=== PATIENT | male | born 1950 | race Hispanic/Latino ===

== ENCOUNTER 2021-04-07 18:51 | Inpatient (IN) | payer MEDICARE ==
--- NOTE | 2021-04-07 19:15 | Emergency Department Report ---
ED Shortness of Breath HPI - General Stated Complaint: SOB/ABD DISTENTION Time Seen by Provider: 04/07/21 19:03 Source: patient, EMS - History of Present Illness Initial Comments: Patient is 71 years old male with history of congestive heart failure and schizophrenia. Patient brought from [facility] for eval uation of difficulty in breathing for the last few days. Patient stated that he is not sure if he is taking his Lasix on. Patient admitted orthopnea and stated that he get out of breath even if he walks for short distance. Patient denied any chest pain. No fever cough or chills. Patient stated that he is not vaccinated for COVID-19. MD Complaint: shortness of breath -: days(s) Severity: moderate Known History Of: congestive heart failure Associated Symptoms: denies other symptoms Treatments Prior to Arrival: none - Related Data Allergies Allergy/AdvReac Type Severity Reaction Status Date / Time No Known Allergies Allergy Unverified 04/07/21 21:15 ED Review of Systems ROS: Stated complaint: SOB/ABD DISTENTION Other details as noted in HPI Comment: All other systems reviewed and negative Constitutional: denies: chills, fever Respiratory: orthopnea, shortness of breath, SOB with exertion, SOB at rest. denies: cough, wheezing Cardiovascular: dyspnea on exertion, orthopnea, paroxysmal nocturnal dyspnea. denies: chest pain, palpitations Gastrointestinal: denies: abdominal pain, nausea, vomiting, diarrhea, constipation, hematemesis, melena, hematochezia Musculoskeletal: denies: back pain Neurological: denies: headache, weakness, numbness, paresthesias, confusion, a bnormal gait ED Physical Exam - General General appearance: alert, in distress - Head Head exam: Present: atraumatic, normocephalic, normal inspection - Eye Eye exam: Present: normal appearance, PERRL - ENT ENT exam: Present: normal exam, normal orophraynx, mucous membranes moist - Neck Neck exam: Present: normal inspection, full ROM. Absent: tenderness, meningismus, lymphadenopathy, thyromegaly - Respiratory Respiratory exam: Present: respiratory distress, rales, decreased breath sounds. Absent: wheezes, rhonchi, stridor, accessory muscle use, prolonged expiratory - Cardiovascular Cardiovascular Exam: Present: regular rate, normal rhythm, normal heart sounds - GI/Abdominal GI/Abdominal exam: Present: soft, distended, normal bowel sounds. Absent: t enderness, guarding, rebound, rigid, organomegaly, mass, bruit, pulsatile mass, hernia - Extremities Exam Extremities exam: Present: normal inspection, full ROM, normal capillary refill. Absent: tenderness, pedal edema, joint swelling - Back Exam Back exam: Present: normal inspection, full ROM. Absent: CVA tenderness (R), CVA tenderness (L) - Neurological Exam Neurological exam: Present: alert, oriented X3, CN II-XII intact, normal gait, reflexes normal. Absent: motor sensory deficit - Psychiatric Psychiatric exam: Present: normal mood - Skin Skin exam: Present: warm, intact, normal color ED Course Vital Signs 04/07/21 21:01 Temperature 98.0 F Pulse Rate 102 H Respiratory 18 Rate Blood Pressure 156/111 O2 Sat by Pulse 97 Oximetry ED Medical Decision Making - Lab Data Result diagrams: 04/07/21 19:18 04/07/21 19:18 - EKG Data -: EKG Interpreted by Vt EKG shows normal: sinus rhythm Rate: normal - EKG Data Interpretation: no acute changes - Radiology Data Radiology results: report reviewed - Medical Decision Making Patient is 71 years old male with history of congestive heart failure and schizophrenia. Patient brought from [facility] for evaluation of difficulty in breathing for the last few days. Patient stated that he is not sure if he is taking his Lasix on. Patient admitted orthopnea and stated that he get out of breath even if he walks for short distance. Patient denied any chest pain. No fever cough or chills. Patient stated that he is not vaccinated for COVID-19. Patient found to have a blood pressure of 217/111. Oxygen saturation is 95% on room air. Chest x-ray showed pulmonary edema. Patient received Lasix 60 mg IV. Labs reviewed and show significant elevation of BNP of more than 6000. I discussed the patient with , he agreed to admit the patient to medical service for further management. Critical care attestation.: If time is entered above; I have spent that time in minutes in the direct care of this critically ill patient, excluding procedure time. ED Disposition Clinical Impression: CHF exacerbation, Malignant hypertension Disposition: ADMITTED INPATIENT Is pt being admited?: Yes Condition: Stable Instructions: Hypertension (ED)
--- NOTE | 2021-04-07 19:48 | XRay Report ---
CHEST 1 VIEW 04/07/2021 7:36 PM INDICATION / CLINICAL INFORMATION: Dyspnea. Shortness of breath for 3 weeks. COMPARISON: None available. FINDINGS: SUPPORT DEVICES: None. HEART / MEDIASTINUM: The heart size is normal. There is prominence of the central pulmonary vessels. LUNGS / PLEURA: The lungs are mildly hyperinflated. There is mild diffuse interstitial lung disease w ith slight thickening of the right minor fissure. Mild confluent parenchymal opacity is present in th e right lower lung. There is a trace right pleural effusion. No pneumothorax. ADDITIONAL FINDINGS: No significant additional findings. IMPRESSION: Mild congestive heart failure superimposed on emphysema. Signer Name: Vasu Prasad MD Signed: 04/07/2021 7:44 PM Workstation Name: [id number]
[2021-04-07 19:53] LABS: BUN/Creatinine Ratio 26; Blood Urea Nitrogen 31 mg/dL (9-20); Calcium 9.3 mg/dL (8.4-10.2); Hemolysis Index 8
[2021-04-07 19:54] LABS: Basophils % (Auto) 0.5 % (0.0-1.8); Eosinophils % (Auto) 0.1 % (0.0-4.3); Hematocrit 39.5 % (35.5-45.6); Hemoglobin 12.9 gm/dl (11.8-15.2); Lymphocytes # (Auto) 1.6 K/mm3 (1.2-5.4); Lymphocytes % (Auto) 20.6 % (13.4-35.0); Mean Corpuscular HGB Conc 33 % (32-34); Mean Corpuscular Volume 97 fl (84-94); Monocytes # (Auto) 0.6 K/mm3 (0.0-0.8); Monocytes % (Auto) 7.6 % (0.0-7.3); Platelet Count 178 K/mm3 (140-440); Red Blood Count 4.09 M/mm3 (3.65-5.03); Red Cell Distribution Width 18.7 % (13.2-15.2)
[2021-04-07 19:56] LABS: Alanine Aminotransferase 37 units/L (7-56); Albumin 3.8 g/dL (3.9-5)
[2021-04-07 19:57] LABS: Bilirubin,Direct < 0.2 mg/dL (0-0.2)
[2021-04-07 20:01] LABS: INR 0.98 (0.87-1.13)
[2021-04-07 20:02] LABS: Partial Thromboplastin Time 26.6 Sec. (24.2-36.6)
[2021-04-07] MEDS ORDERED: FUROSEMIDE 40 MG/4 ML INJ IV ONE (21:45)
[2021-04-07] MEDS ORDERED: ACETAMINOPHEN 325 MG TAB PO PRN (22:17)
[2021-04-07] MEDS ORDERED: MORPHINE 4 MG/1 ML INJ IV PRN (22:17)
[2021-04-07] MEDS ORDERED: MAGNESIUM HYDROXIDE (MOM) ORAL LIQD UDC PO PRN (22:17)
[2021-04-07] MEDS ORDERED: ONDANSETRON 4 MG/2 ML INJ IV PRN (22:17)
[2021-04-07] MEDS ORDERED: MORPHINE 2 MG/1 ML INJ IV PRN (22:17)
--- NOTE | 2021-04-07 22:34 | History and Physical Report ---
History of Present Illness Date of examination: 04/07/21 Date of admission: 04/07/2021 Chief complaint: Shortness of Breath History of present illness: 71-year-old male with known history of schizophrenia and congestive heart failure brought in from [facility] for evaluation of shortness of breath which has been ongoing for the past few days. Patient has been having increasing shortness of breath upon minimal exertion. He also indicates that he has had some orthopnea. He states he cannot recall whether he has been taking his diuretics regularly. He denies any chest pain, no nausea vomiting, no abdominal pain, no headache or dizziness, no diaphoresis. However indicates that he has had some mild cough which is nonproductive. He has had some lower extremity swelling. Patient denies any fever or chills, denies any sick contacts and no recent travel. Denies any contact with anyone with COVID-19. Upon arrival in the emergency room blood pressure was quite elevated but later improved upon administration of IV Lasix. Work-up reveals elevated BNP of 6818 Chest x-ray reveals: Mild congestive heart failure superimposed on emphysema. Past History Past Medical History: heart failure, hypertension, other (Schizophrenia) Past Surgical History: No surgical history Social history: other (Resident of [facility] Family history: no significant family history Medications and Allergies Allergies Allergy/AdvReac Type Severity Reaction Status Date / Time No Known Allergies Allergy Unverified 04/07/21 21:15 Active Meds: Active Medications Acetaminophen (Acetaminophen 325 Mg Tab) 650 mg PO Q4H PRN PRN Reason: Pain MILD(1-3)/Fever >100.5/MANCERA Furosemide (Furosemide 40 Mg/4 Ml Inj) 40 mg IV BID@0600,1800 THONG Heparin Sodium (Porcine) (Heparin 5,000 Unit/1 Ml Vial) 5,000 unit SUB-Q Q8HR THONG Magnesium Hydroxide (Magnesium Hydroxide (Mom) Oral Liqd Udc) 30 ml PO Q4H PRN PRN Reason: Constipation Morphine Sulfate (Morphine 2 Mg/1 Ml Inj) 2 mg IV Q4H PRN PRN Reason: Pain, Moderate (4-6) Morphine Sulfate (Morphine 4 Mg/1 Ml Inj) 4 mg IV Q4H PRN PRN Reason: Pain , Severe (7-10) Ondansetron HCl (Ondansetron 4 Mg/2 Ml Inj) 4 mg IV Q8H PRN PRN Reason: Nausea And Vomiting Sodium Chloride (Sodium Chloride 0.9% 10 Ml Flush Syringe) 10 ml IV BID THONG Sodium Chloride (Sodium Chloride 0.9% 10 Ml Flush Syringe) 10 ml IV PRN PRN PRN Reason: LINE FLUSH Review of Systems Constitutional: no fever, no chills Ears, nose, mouth and throat: no nasal congestion, no sore throat Cardiovascular: edema, leg edema, no chest pain, no palpitations Respiratory: cough, shortness of breath Gastrointestinal: no abdominal pain, no nausea, no vomiting, no diarrhea Genitourinary Male: no dysuria, no hematuria, no nocturia Musculoskeletal: no neck pain, no low back pain Integumentary: no rash, no pruritis Neurological: no headaches, no confusion Psychiatric: no anxiety, no depression Endocrine: no polyphagia, no polydipsia, no polyuria, no nocturia Exam - Constitutional Vitals: Temp Pulse Resp BP Pulse Ox 98.0 F 102 H 18 156/111 97 04/07/21 21:01 04/07/21 21:01 04/07/21 21:01 04/07/21 21:01 04/07/21 21:01 General appearance: Present: no acute distress, well-nourished - EENT Eyes: Present: PERRL, EOM intact. Absent: scleral icterus ENT: hearing intact, clear oral mucosa, dentition normal - Neck Neck: Present: supple, normal ROM - Respiratory Respiratory effort: normal Respiratory: bilateral: rales - Cardiovascular Rhythm: regular Heart Sounds: Present: S1 & S2. Absent: gallop, systolic murmur, diastolic murmur, rub, click - Extremities Extremities: no ischemia, pulses intact, pulses symmetrical, normal temperature, normal color, Full ROM Extremity abnormal: edema (2+ bilateral lower extremity edema) Peripheral Pulses: within normal limits - Abdominal General gastrointestinal: Present: soft, non-tender, distended (Mildly.), normal bowel sounds. Absent: mass - Integumentary Integumentary: Present: clear, warm, dry. Absent: rash - Musculoskeletal Musculoskeletal: strength equal bilaterally - Psychiatric Psychiatric: appropriate mood/affect, intact judgment & insight, memory intact, cooperative - Neurologic Neurologic: CNII-XII intact, no focal deficits, moves all extremities HEART Score - HEART Score Troponin: Troponin T < 0.010 ng/mL (0.00-0.029) 04/07/21 21:50 Results - Labs CBC & Chem 7: 04/07/21 19:18 04/07/21 19:18 Labs: Abnormal lab results 04/07/21 04/07/21 04/07/21 Range/Units 19:18 19:18 19:18 MCV 97 H (84-94) fl RDW 18.7 H (13.2-15.2) % [place] % (Auto) 7.6 H (0.0-7.3) % Seg Neutrophils % 71.2 H (40.0-70.0) % BUN 31 H (9-20) mg/dL Glucose 147 H (75-100) mg/dL NT-Pro-B Natriuret Pep 6818 H (0-900) pg/mL Albumin 3.8 L (3.9-5) g/dL Assessment and Plan - Patient Problems (1) CHF exacerbation Current Visit: Yes Status: Acute Plan to address problem: Patient placed on diuretics. Will monitor inputs and outputs and also monitor daily weight. Consult placed to cardiology for evaluation and further recommendations. We will schedule patient for echocardiogram. (2) Malignant hypertension Current Visit: Yes Status: Acute Plan to address problem: Patient encouraged on compliance with his medications. We will resume routine home medications once reconciled. (3) H/O schizophrenia Current Visit: Yes Status: Acute Plan to address problem: Stable We will continue routine home medications once reconciled. Patient is a resident of [facility]. (4) DVT prophylaxis Current Visit: Yes Status: Acute Plan to address problem: Patient placed on subcutaneous heparin. (5) Full code status Current Visit: Yes Status: Acute Plan to address problem: Patient is full code.
[2021-04-08] MEDS: FUROSEMIDE 40 MG/4 ML INJ IV SCH ×2 (06:53→17:46)
[2021-04-08] MEDS: HEPARIN 5,000 UNIT/1 ML VIAL SUB-Q SCH ×3 (06:53→21:44)
[2021-04-08 07:13] LABS: Basophils # (Auto) 0.1 K/mm3 (0.0-0.1); Basophils % (Auto) 0.7 % (0.0-1.8); Eosinophils # (Auto) 0.1 K/mm3 (0.0-0.4); Eosinophils % (Auto) 0.9 % (0.0-4.3); Hemoglobin 13.5 gm/dl (11.8-15.2); Lymphocytes # (Auto) 2.5 K/mm3 (1.2-5.4); Lymphocytes % (Auto) 27.5 % (13.4-35.0); Mean Corpuscular HGB Conc 33 % (32-34); Mean Corpuscular Volume 96 fl (84-94); Monocytes # (Auto) 0.9 K/mm3 (0.0-0.8); Monocytes % (Auto) 9.8 % (0.0-7.3); Platelet Count 182 K/mm3 (140-440); Red Blood Count 4.26 M/mm3 (3.65-5.03); Red Cell Distribution Width 18.3 % (13.2-15.2)
[2021-04-08 07:25] LABS: BUN/Creatinine Ratio 28; Blood Urea Nitrogen 33 mg/dL (9-20); Calcium 9.8 mg/dL (8.4-10.2); Hemolysis Index 5
[2021-04-08 07:31] LABS: INR 0.95 (0.87-1.13)
--- NOTE | 2021-04-08 07:51 | Progress Note ---
Assessment and Plan Assessment and plan: #Acute on chronic systolic heart failure -Unclear etiology, EF unknown -BMP 6818 -continue with Lasix 40 IV twice daily, good response with challenge in ED -We will monitor potassium and magnesium levels -Strict I&O's; daily weights; cardiac diet -Echocardiogram ordered -Low-dose beta-tomas added; may be candidate for ACEi -Cardiology following, assistance appreciated #Hypertension -As needed hydralazine -No home blood pressure medications documented -will optimize inpatient #Schizophrenia -Currently at [facility], will return at discharge Disposition Plan: [facility] Total Time Spent with Patient (Minutes): 30 minutes History Interval history: No acute events overnight. Patient denies chest pain. Reports worsening shortness of breath when lying flat. Reports significant improvement in lower extremity swelling Hospitalist Physical - Physical exam Narrative exam: GENERAL: Well-developed well-nourished. Sitting on the side of the bed in no acute distress. HEENT: Nasal cannula in place at 1 L/min CHEST/LUNGS: Crackles appreciated at bilateral lower lung lobes posteriorly. HEART/CARDIOVASCULAR: RRR. No murmur, rubs or gallops appreciated. ABDOMEN: +BS. NT. Mildly distended abdomen, no fluid wave appreciated. NEURO: No focal motor deficit. Follows all commands and is ambulatory. MUSCULOSKELETAL: No joint effusion EXTREMITIES: No cyanosis, clubbing or edema. PSYCH: Cooperative. - Constitutional Vitals: Temp Pulse Resp BP Pulse Ox 98.2 F 93 H 18 164/102 99 04/08/21 07:15 04/08/21 07:15 04/08/21 07:15 04/08/21 07:15 04/08/21 07:15 General appearance: Present: no acute distress, well-nourished - Allied Health Allied health notes reviewed: nursing HEART Score - HEART Score Troponin: Troponin T < 0.010 ng/mL (0.00-0.029) 04/07/21 21:50 Results - Labs CBC & Chem 7: 04/08/21 06:35 04/08/21 06:35 Labs: Laboratory Last Values WBC 9.0 K/mm3 (4.5-11.0) 04/08/21 06:35 RBC 4.26 M/mm3 (3.65-5.03) 04/08/21 06:35 Hgb 13.5 gm/dl (11.8-15.2) 04/08/21 06:35 Hct 41.0 % (35.5-45.6) 04/08/21 06:35 MCV 96 fl (84-94) H 04/08/21 06:35 MCH 32 pg (28-32) 04/08/21 06:35 MCHC 33 % (32-34) 04/08/21 06:35 RDW 18.3 % (13.2-15.2) H 04/08/21 06:35 Plt Count 182 K/mm3 (140-440) 04/08/21 06:35 Lymph % (Auto) 27.5 % (13.4-35.0) 04/08/21 06:35 [place] % (Auto) 9.8 % (0.0-7.3) H 04/08/21 06:35 Eos % (Auto) 0.9 % (0.0-4.3) 04/08/21 06:35 Baso % (Auto) 0.7 % (0.0-1.8) 04/08/21 06:35 Lymph # (Auto) 2.5 K/mm3 (1.2-5.4) 04/08/21 06:35 [place] # (Auto) 0.9 K/mm3 (0.0-0.8) H 04/08/21 06:35 Eos # (Auto) 0.1 K/mm3 (0.0-0.4) 04/08/21 06:35 Baso # (Auto) 0.1 K/mm3 (0.0-0.1) 04/08/21 06:35 Seg Neutrophils % 61.1 % (40.0-70.0) 04/08/21 06:35 Seg Neutrophils # 5.5 K/mm3 (1.8-7.7) 04/08/21 06:35 PT 13.2 Sec. (12.2-14.9) 04/08/21 06:35 INR 0.95 (0.87-1.13) 04/08/21 06:35 APTT 26.6 Sec. (24.2-36.6) 04/07/21 19:18 Sodium 147 mmol/L (137-145) H 04/08/21 06:35 Potassium 4.9 mmol/L (3.6-5.0) 04/08/21 06:35 Chloride 102.9 mmol/L (98-107) 04/08/21 06:35 Carbon Dioxide 43 mmol/L (22-30) H* D 04/08/21 06:35 Anion Gap 6 mmol/L 04/08/21 06:35 BUN 33 mg/dL (9-20) H 04/08/21 06:35 Creatinine 1.2 mg/dL (0.8-1.3) 04/08/21 06:35 Estimated GFR > 60 ml/min 04/08/21 06:35 BUN/Creatinine Ratio 28 % 04/08/21 06:35 Glucose 133 mg/dL (75-100) H 04/08/21 06:35 Calcium 9.8 mg/dL (8.4-10.2) 04/08/21 06:35 Total Bilirubin < 0.20 mg/dL (0.1-1.2) 04/07/21 19:18 Direct Bilirubin < 0.2 mg/dL (0-0.2) 04/07/21 19:18 Indirect Bilirubin 0.0 mg/dL 04/07/21 19:18 AST 21 units/L (5-40) 04/07/21 19:18 ALT 37 units/L (7-56) 04/07/21 19:18 Alkaline Phosphatase 67 units/L (35-129) 04/07/21 19:18 Troponin T < 0.010 ng/mL (0.00-0.029) 04/07/21 21:50 NT-Pro-B Natriuret Pep 6818 pg/mL (0-900) H 04/07/21 19:18 Total Protein 6.8 g/dL (6.3-8.2) 04/07/21 19:18 Albumin 3.8 g/dL (3.9-5) L 04/07/21 19:18 Albumin/Globulin Ratio 1.3 % 04/07/21 19:18 Active Medications - Current Medications Current Medications: Generic Name Dose Route Start Last Admin Trade Name Freq PRN Reason Stop Dose Admin Acetaminophen 650 mg 04/07/21 22:17 Acetaminophen 325 Mg Tab PO Q4H PRN Pain MILD(1-3)/Fever >100.5/MANCERA Furosemide 40 mg 04/08/21 06:00 04/08/21 06:53 Furosemide 40 Mg/4 Ml Inj IV 40 mg BID@0600,1800 THONG Administration Heparin Sodium (Porcine) 5,000 unit 04/08/21 06:00 04/08/21 06:53 Heparin 5,000 Unit/1 Ml Vial SUB-Q 5,000 unit Q8HR THONG Administration Magnesium Hydroxide 30 ml 04/07/21 22:17 Magnesium Hydroxide (Mom) Oral Liqd Udc PO Q4H PRN Constipation Morphine Sulfate 2 mg 04/07/21 22:17 Morphine 2 Mg/1 Ml Inj IV Q4H PRN Pain, Moderate (4-6) Morphine Sulfate 4 mg 04/07/21 22:17 Morphine 4 Mg/1 Ml Inj IV Q4H PRN Pain , Severe (7-10) Ondansetron HCl 4 mg 04/07/21 22:17 Ondansetron 4 Mg/2 Ml Inj IV Q8H PRN Nausea And Vomiting Sodium Chloride 10 ml 04/08/21 10:00 Sodium Chloride 0.9% 10 Ml Flush Syringe IV BID THONG Sodium Chloride 10 ml 04/07/21 22:17 Sodium Chloride 0.9% 10 Ml Flush Syringe IV PRN PRN LINE FLUSH
[2021-04-08] MEDS: hydrALAZINE 20 MG/1 ML INJ IV PRN (09:49)
--- NOTE | 2021-04-08 10:27 | Event Note ---
Full consult dictated. Thank you
--- NOTE | 2021-04-08 12:11 | Consultation ---
DATE OF CONSULTATION: 04/08/2021 REFERRED BY: Hospitalist service. REASON FOR CONSULTATION: Advice and opinion regarding heart failure. HISTORY OF PRESENT ILLNESS: The patient is a very pleasant 71-year-old -[place] gentleman with history of schizophrenia and "heart failure," brought in from [facility] with shortness of breath. It has been going on for a few days, worsening with minimal exertion. He is not a good historian. He is seen on telemetry. Denies any chest pain. Shortness of breath is better. No syncope or presyncope. 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 Has had some minimal cough, lower extremity swelling. No abdominal pain, no hematochezia, melena, hemoptysis, rash, fevers or chills. No blurred vision, headache, or syncope. PAST MEDICAL HISTORY: As aforementioned. PAST SURGICAL HISTORY: No known surgical history. SOCIAL HISTORY: Nonsmoker, nondrinker. FAMILY HISTORY: No family history of premature heart disease. ALLERGIES: No known drug, food or environmental allergies. INPATIENT AND OUTPATIENT MEDICATIONS: Reviewed. PHYSICAL EXAMINATION: VITAL SIGNS: Blood pressure is 150/90. The patient is in sinus rhythm in the 90s-105 on telemetry. GENERAL: This is a middle-aged -[place] male, in no apparent distress, oriented x 3. HEENT: Sclerae are anicteric. PERRLA. NECK: Supple, no masses, no JVD. CHEST: Decreased breath sounds, bibasilar. Overall, moderate air movement. CARDIOVASCULAR: Regular S1, S2. ABDOMEN: Soft, nontender, nondistended. Normoactive bowel sounds in 4 quadrants. No mass or bruits. EXTREMITIES: No cyanosis, clubbing, edema. Good peripheral pulses. SKIN: Dry and intact. No rashes. DIAGNOSTIC DATA: ECG today reveals a normal sinus rhythm, left atrial enlargement, LVH with repolarization changes. Chest x-ray from yesterday reveals questionable mild congestive heart failure and emphysema. LABORATORY DATA: WBC is 9.0, hemoglobin 13.5, hematocrit 41, platelets 182. INR is 0.95. Sodium 147, potassium 4.9, creatinine 1.2. ProBNP is 6818. Troponin is normal. ASSESSMENT AND PLAN: In summary, the patient is a pleasant 71-year-old -[place] gentleman. 1. Acute on chronic congestive heart failure, of unclear type/etiology. Unclear, if he has been compliant with his medications. Continue with IV Lasix. We will add low-dose Coreg. May need to add FREDDIE inhibition as well subsequently. Will need heart failure education. Followup echocardiogram. Continue heparin for DVT prophylaxis. Thank you for this consultation. We will be happy to follow along with you. TID: [id number] RECEIPT: [id number] ANN-MARIE/RADHA
[2021-04-08] MEDS: carvediloL 3.125 MG TAB PO SCH ×2 (12:53→21:44)
--- NOTE | 2021-04-08 13:14 | Electrocardiograph Report ---
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
[2021-04-08 16:24] LABS: Bilirubin,Urine NEG (Negative); Blood,Urine NEG (Negative); Color,Urine Straw (Yellow); RBC,Urine < 1.0 /HPF (0.0-6.0); Urobilinogen,Urine < 2.0 mg/dL (<2.0)
[2021-04-08 17:06] LABS: Protein,Urine <15 mg/dL mg/dL (Negative)
[2021-04-09 06:22] LABS: BUN/Creatinine Ratio 24; Blood Urea Nitrogen 26 mg/dL (9-20); Calcium 9.1 mg/dL (8.4-10.2); Hemolysis Index 4
[2021-04-09] MEDS: FUROSEMIDE 40 MG/4 ML INJ IV SCH ×2 (06:38→18:00)
[2021-04-09] MEDS: HEPARIN 5,000 UNIT/1 ML VIAL SUB-Q SCH ×3 (06:38→21:34)
[2021-04-09] MEDS: carvediloL 3.125 MG TAB PO SCH (09:17)
--- NOTE | 2021-04-09 11:58 | Progress Note ---
Assessment and Plan Assessment and plan: #Acute on chronic systolic heart failure -Unclear etiology, EF unknown -BMP 6818 -continue with Lasix 40 IV twice daily -monitor potassium and magnesium levels -Strict I&O's; daily weights; cardiac diet -Echocardiogram pending -continue low dose BB -plan for stress test tomorrow -Cardiology following, assistance appreciated #Hypertension -As needed hydralazine -No home blood pressure medications documented -will optimize inpatient #Schizophrenia -Currently at [facility], will return at discharge Disposition Plan: [facility] Total Time Spent with Patient (Minutes): 20 minutes History Interval history: No acute events overnight. Patient denies chest pain. No longer requiring oxygen. Patient reports feeling much better. Hospitalist Physical - Physical exam Narrative exam: GENERAL: Well-developed well-nourished. Sitting on the side of the bed in no acute distress. CHEST/LUNGS: Decreased breath sounds at bilateral lower lung lobes posteriorly. HEART/CARDIOVASCULAR: RRR. No murmur, rubs or gallops appreciated. ABDOMEN: +BS. NT. Improved abdominal distention, no fluid wave appreciated. NEURO: No focal motor deficit. Follows all commands and is ambulatory. MUSCULOSKELETAL: No joint effusion EXTREMITIES: No cyanosis, clubbing or edema. PSYCH: Cooperative. - Constitutional Vitals: Temp Pulse Resp BP Pulse Ox 98.2 F 91 H 18 145/103 98 04/09/21 08:00 04/09/21 10:00 04/09/21 10:00 04/09/21 08:00 04/09/21 10:00 General appearance: Present: no acute distress, well-nourished - Allied Health Allied health notes reviewed: nursing HEART Score - HEART Score Troponin: Troponin T < 0.010 ng/mL (0.00-0.029) 04/07/21 21:50 Results - Labs CBC & Chem 7: 04/08/21 06:35 04/09/21 05:21 Labs: Laboratory Last Values WBC 9.0 K/mm3 (4.5-11.0) 04/08/21 06:35 RBC 4.26 M/mm3 (3.65-5.03) 04/08/21 06:35 Hgb 13.5 gm/dl (11.8-15.2) 04/08/21 06:35 Hct 41.0 % (35.5-45.6) 04/08/21 06:35 MCV 96 fl (84-94) H 04/08/21 06:35 MCH 32 pg (28-32) 04/08/21 06:35 MCHC 33 % (32-34) 04/08/21 06:35 RDW 18.3 % (13.2-15.2) H 04/08/21 06:35 Plt Count 182 K/mm3 (140-440) 04/08/21 06:35 Lymph % (Auto) 27.5 % (13.4-35.0) 04/08/21 06:35 [place] % (Auto) 9.8 % (0.0-7.3) H 04/08/21 06:35 Eos % (Auto) 0.9 % (0.0-4.3) 04/08/21 06:35 Baso % (Auto) 0.7 % (0.0-1.8) 04/08/21 06:35 Lymph # (Auto) 2.5 K/mm3 (1.2-5.4) 04/08/21 06:35 [place] # (Auto) 0.9 K/mm3 (0.0-0.8) H 04/08/21 06:35 Eos # (Auto) 0.1 K/mm3 (0.0-0.4) 04/08/21 06:35 Baso # (Auto) 0.1 K/mm3 (0.0-0.1) 04/08/21 06:35 Seg Neutrophils % 61.1 % (40.0-70.0) 04/08/21 06:35 Seg Neutrophils # 5.5 K/mm3 (1.8-7.7) 04/08/21 06:35 PT 13.2 Sec. (12.2-14.9) 04/08/21 06:35 INR 0.95 (0.87-1.13) 04/08/21 06:35 APTT 26.6 Sec. (24.2-36.6) 04/07/21 19:18 Sodium 141 mmol/L (137-145) 04/09/21 05:21 Potassium 3.8 mmol/L (3.6-5.0) D 04/09/21 05:21 Chloride 99.4 mmol/L (98-107) 04/09/21 05:21 Carbon Dioxide 36 mmol/L (22-30) H D 04/09/21 05:21 Anion Gap 9 mmol/L 04/09/21 05:21 BUN 26 mg/dL (9-20) H 04/09/21 05:21 Creatinine 1.1 mg/dL (0.8-1.3) 04/09/21 05:21 Estimated GFR > 60 ml/min 04/09/21 05:21 BUN/Creatinine Ratio 24 % 04/09/21 05:21 Glucose 104 mg/dL (75-100) H 04/09/21 05:21 POC Glucose 116 mg/dL (70-105) H 04/08/21 15:18 Calcium 9.1 mg/dL (8.4-10.2) 04/09/21 05:21 Total Bilirubin < 0.20 mg/dL (0.1-1.2) 04/07/21 19:18 Direct Bilirubin < 0.2 mg/dL (0-0.2) 04/07/21 19:18 Indirect Bilirubin 0.0 mg/dL 04/07/21 19:18 AST 21 units/L (5-40) 04/07/21 19:18 ALT 37 units/L (7-56) 04/07/21 19:18 Alkaline Phosphatase 67 units/L (35-129) 04/07/21 19:18 Troponin T < 0.010 ng/mL (0.00-0.029) 04/07/21 21:50 NT-Pro-B Natriuret Pep 6818 pg/mL (0-900) H 04/07/21 19:18 Total Protein 6.8 g/dL (6.3-8.2) 04/07/21 19:18 Albumin 3.8 g/dL (3.9-5) L 04/07/21 19:18 Albumin/Globulin Ratio 1.3 % 04/07/21 19:18 Urine Color Straw (Yellow) 04/08/21 Unknown Urine Turbidity Clear (Clear) 04/08/21 Unknown Urine pH 8.0 (5.0-7.0) H 04/08/21 Unknown Ur Specific [place] 1.008 (1.003-1.030) 04/08/21 Unknown Urine Protein <15 mg/dl mg/dL (Negative) 04/08/21 Unknown Urine Glucose (UA) Neg mg/dL (Negative) 04/08/21 Unknown Urine Ketones Neg mg/dL (Negative) 04/08/21 Unknown Urine Blood Neg (Negative) 04/08/21 Unknown Urine Nitrite Neg (Negative) 04/08/21 Unknown Urine Bilirubin Neg (Negative) 04/08/21 Unknown Urine Urobilinogen < 2.0 mg/dL (<2.0) 04/08/21 Unknown Ur Leukocyte Esterase Sm (Negative) 04/08/21 Unknown Urine WBC (Auto) 1.0 /HPF (0.0-6.0) 04/08/21 Unknown Urine RBC (Auto) < 1.0 /HPF (0.0-6.0) 04/08/21 Unknown Martinez/IV: Voiding Method Urinal Active Medications - Current Medications Current Medications: Generic Name Dose Route Start Last Admin Trade Name Freq PRN Reason Stop Dose Admin Acetaminophen 650 mg 04/07/21 22:17 04/08/21 17:46 Acetaminophen 325 Mg Tab PO 650 mg Q4H PRN Administration Pain MILD(1-3)/Fever >100.5/MANCERA Carvedilol 3.125 mg 04/08/21 11:00 04/09/21 09:17 Carvedilol 3.125 Mg Tab PO 3.125 mg BID THONG Administration Furosemide 40 mg 04/08/21 06:00 04/09/21 06:38 Furosemide 40 Mg/4 Ml Inj IV 40 mg BID@0600,1800 THONG Administration Heparin Sodium (Porcine) 5,000 unit 04/08/21 06:00 04/09/21 06:38 Heparin 5,000 Unit/1 Ml Vial SUB-Q 5,000 unit Q8HR THONG Administration Hydralazine HCl 10 mg 04/08/21 07:51 04/08/21 09:49 Hydralazine 20 Mg/1 Ml Inj IV 10 mg Q6H PRN Administration Hypertension Magnesium Hydroxide 30 ml 04/07/21 22:17 Magnesium Hydroxide (Mom) Oral Liqd Udc PO Q4H PRN Constipation Morphine Sulfate 2 mg 04/07/21 22:17 Morphine 2 Mg/1 Ml Inj IV Q4H PRN Pain, Moderate (4-6) Morphine Sulfate 4 mg 04/07/21 22:17 Morphine 4 Mg/1 Ml Inj IV Q4H PRN Pain , Severe (7-10) Ondansetron HCl 4 mg 04/07/21 22:17 Ondansetron 4 Mg/2 Ml Inj IV Q8H PRN Nausea And Vomiting Sodium Chloride 10 ml 04/08/21 10:00 04/09/21 09:19 Sodium Chloride 0.9% 10 Ml Flush Syringe IV 10 ml BID THONG Administration Sodium Chloride 10 ml 04/07/21 22:17 04/09/21 06:45 Sodium Chloride 0.9% 10 Ml Flush Syringe IV 10 ml PRN PRN Administration LINE FLUSH
[2021-04-09] MEDS ORDERED: carvediloL 3.125 MG TAB PO SCH (12:22)
[2021-04-09] MEDS ORDERED: LISINOPRIL 20 MG TAB PO SCH (13:00)
--- NOTE | 2021-04-09 13:57 | Progress Note ---
Assessment and Plan 71 y/o Male HFrEF HTN * Echo 04/07/2021-EF 20%, severe global hypokinesis of left ventricle, mild diastolic dysfunction impaired relaxation pattern, right ventricular systolic function is mildly reduced, mild aortic regurgitation. * Currently on Coreg 3.125mg PO BID Schizophrenia * Patient treatment at [facility] * Management per primary team Plan: Increased Coreg 12.5mg PO BID, added Lisinopril 20mg PO QD, added aldactone 25mg PO QD. Convert to Lasix 40mg PO QD starting tomorrow. BMP in AM Lexiscan Stress in AM. NPO after midnight Patient seen in conjunction with who agrees with this plan of care - Patient Problems (1) CHF exacerbation Current Visit: Yes Status: Acute (2) DVT prophylaxis Current Visit: Yes Status: Acute (3) H/O schizophrenia Current Visit: Yes Status: Acute (4) Malignant hypertension Current Visit: Yes Status: Acute Subjective Date of service: 04/09/21 Principal diagnosis: Acute on chronic HFrEF Interval history: Patient sitting in bed. reports feeling well Patient sinus 90s-100s no events on monitor Objective Vital Signs Temp Pulse Pulse Pulse Resp Resp BP 04/09/21 11:38 97.2 F L 17 143/108 04/09/21 10:00 91 H 91 H 17 18 04/09/21 09:17 99 H 04/09/21 08:00 98.2 F 94 H 04/09/21 07:37 98.2 F 15 145/103 04/09/21 07:00 91 H 04/09/21 04:29 98.2 F 74 04/08/21 23:27 98.6 F 92 H 18 141/98 04/08/21 23:00 99 H 04/08/21 22:19 18 04/08/21 21:44 105 H 163/117 04/08/21 19:10 98.2 F 105 H 20 163/117 04/08/21 15:18 97 H 149/111 04/08/21 15:00 99 H BP Pulse Ox 04/09/21 11:38 04/09/21 10:00 98 04/09/21 09:17 04/09/21 08:00 145/103 04/09/21 07:37 04/09/21 07:00 04/09/21 04:29 151/68 04/08/21 23:27 94 04/08/21 23:00 04/08/21 22:19 98 04/08/21 21:44 04/08/21 19:10 96 04/08/21 15:18 99 04/08/21 15:00 - Physical Examination General: No Apparent Distress HEENT: Positive: PERRL Neck: Positive: trachea midline Cardiac: Positive: Reg Rate and Rhythm Lungs: Positive: Normal Breath Sounds Neuro: Positive: Grossly Intact Abdomen: Positive: Soft, Active Bowel Sounds Skin: Negative: Rash, Suspicious Lesions Extremities: Present: upper extr. pulses, lower extr. pulses. Absent: edema - Labs and Meds Comprehensive Metabolic Panel 04/09/21 Range/Units 05:21 Sodium 141 (137-145) mmol/L Potassium 3.8 D (3.6-5.0) mmol/L Chloride 99.4 (98-107) mmol/L Carbon Dioxide 36 H D (22-30) mmol/L BUN 26 H (9-20) mg/dL Creatinine 1.1 (0.8-1.3) mg/dL Glucose 104 H (75-100) mg/dL Calcium 9.1 (8.4-10.2) mg/dL
[2021-04-09] MEDS: hydrALAZINE 20 MG/1 ML INJ IV PRN (21:32)
[2021-04-10 05:35] LABS: BUN/Creatinine Ratio 24; Blood Urea Nitrogen 26 mg/dL (9-20); Calcium 9.5 mg/dL (8.4-10.2); Hemolysis Index 30
[2021-04-10] MEDS: HEPARIN 5,000 UNIT/1 ML VIAL SUB-Q SCH (06:22)
[2021-04-10 06:27] VITALS: BP 132/87
[2021-04-10] MEDS ORDERED: REGADENOSON 0.4 MG/5 ML INJ IV ONE (07:16)
[2021-04-10] MEDS ORDERED: FUROSEMIDE 40 MG TAB PO SCH (10:00)
--- NOTE | 2021-04-10 15:32 | Discharge Summary ---
Providers - Providers Date of Admission: 04/07/21 22:10 Date of discharge: 04/10/21 (Patient left AMA) Attending physician: TEJAS ZALDIVAR MD 04/07/21 22:28 Consult to Cardiology [CONS] Routine Consulting Provider: SUE VERA Reason For Exam: CHF EXAC. Primary care physician: DIRECTOR CLINICAL [facility]EARCH Hospitalization Reason for admission: Acute on chronic systolic heart failure exacerbation Condition: Stable Pertinent studies: TTE Procedures: TTE Hospital course: Mr. Anselmo Ramos is a 71-year-old male with known history of schizophrenia and congestive heart failure brought in from [facility] for evaluation of shortness of breath which has been ongoing for the past few days. Patient has been having increasing shortness of breath upon minimal exertion. He also indicates that he has had some orthopnea. He states he cannot recall whether he has been taking his diuretics regularly. He denies any chest pain, no nausea vomiting, no abdominal pain, no headache or dizziness, no diaphoresis. However indicates that he has had some mild cough which is nonproductive. He has had some lower extremity swelling. The patient underwent an echo that revealed EF of 20% with severe global hypokinesis in conjunction with diastolic impairment. The patient was supposed to undergo a stress test on 04/10/2021; however, this was pushed back due to the patient consuming coffee the morning of the procedure. As a result, the patient left AMA. Disposition: 07 LEFT AGAINST MEDICAL ADVICE Final Discharge Diagnosis (Prints w/discharge instructions): No prescriptions ordered. Time spent for discharge: 20 mins - Discharge Diagnoses (1) CHF exacerbation Status: Acute Qualifiers: Heart failure type: systolic Qualified Code(s): I50.23 - Acute on chronic systolic (congestive) heart failure Core Measure Documentation - Palliative Care Palliative Care/ Comfort Measures: Not Applicable - Core Measures Any of the following diagnoses?: heart failure (Unable to determine etiology of heart failure due to patient leaving AMA) - VTE Discharge Requirements Has pt received <5 days of overlap therapy or INR<2.0: No Anticoagulant overlap therapy prescribed at discharge: No Contraindication No Overlap Therapy order at DC: Not Indicated - Heart Failure Discharge Requirements FREDDIE/ARB for LVSD if EF <40%: Not Applicable (Patient left AMA) Reason for no FREDDIE/ARB: Patient refusal (Patient left in) Beta tomas at discharge: No Reason for no beta tomas on DC: Patient refusal (Patient left AMA) Heart failure comment: Unable to have appropriate core measures for heart failure admission due to patient leaving AMA. Exam - Physical Exam Narrative exam: Unable to perform due to patient leaving AMA before physician could evaluate patient - Constitutional Vitals: Temp Pulse Resp BP Pulse Ox 97.7 F 81 18 132/87 95 04/10/21 05:04/10/21 05:15 04/10/21 05:04/10/21 05:04/10/21 05:15 - Allied Health Allied health notes reviewed: nursing Plan Activity: advance as tolerated Weight Bearing Status: Weight Bear as Tolerated Diet: low salt Special Instructions: restrict fluid intake to (1.5 to 2 L daily), smoking cessation Additional Instructions: No prescriptions are prescribed. Plan of Treatment: Patient left AMA Health Concerns: Concerns exist for possible worsening of acute on chronic systolic heart failure that was inappropriately managed due to the patient leaving AMA. It is highly recommended that the patient return back to the hospital for full course treatment in order to prevent worsening of clinical status. Assessment: Unable to perform a full assessment due to patient leaving AMA prior to physician coming to bedside Follow up with: PRIMARY CAREMD [Primary Care Provider] - 3-5 Days Forms: AMA Form
== END 2021-04-10 08:27 | disposition left against medical advice (07) | DRG 293 ==
LOC: ED 18:51 → 4A 22:10
PROVIDERS: ADMIT Internal Medicine Geriatric Medicine; ATTEND Student in an Organized Health Care Education/Training Program
DX: I11.0 Hypertensive heart disease with heart failure (principal); I50.23 Acute on chronic systolic (congestive) heart failure; F20.9 Schizophrenia, unspecified; Z53.29 Procedure and treatment not carried out because of patient's decision for other reasons
CPT/HCPCS: 36415; 71045; 80048; 80076; 81001; 82962; 83735; 83880; 84484; 85025; 85610; 85730; 93005; 93306; G0378; J0360; J1644; J1940